=== PATIENT | male | born 1955 | race Caucasian/White ===

== ENCOUNTER 2025-05-30 15:58 | Outpatient (OUT) | payer MEDICARE, SELFPAY ==
--- NOTE | 2025-05-30 16:24 | XR_ITS ---
[facility] [place] [id number] Patient Name: BRONWYN VOGT MRN: [id number] date: 1955 Sex: M Assigned Patient Location: RAD Current Patient Location: [facility] Accession/Order Number: [id number] Exam Date: 05/30/2025 21:06 Report Date: 05/30/2025 21:07 At the request of: SULAIMAN LOPEZ DPJacquie Procedure: XR foot LT min 3V LEFT FOOT - 3 views CLINICAL HISTORY: Pain COMPARISON: None FINDINGS: No focal soft tissue abnormality. No acute bony process is seen. Plantar spurring. Mild scattered degenerative changes. No bony erosions. XR/XR foot LT min 3V IMPRESSION: MILD DEGENERATIVE CHANGES OF THE LEFT FOOT WITH PLANTAR SPURRING. NO ACUTE BONY PROCESS. Impression dictated by: Ovidio Diane Jr., DJaseOJase 05/30/2025 9:07 PM Dictation Location: [place] [address] Electronically authenticated by: [id number] Y Date: 05/30/2025 21:07
== END 2025-05-30 15:59 | disposition home or self-care (01) ==
PROVIDERS: PCP Family Medicine; Visit Provider Podiatrist Foot & Ankle Surgery
DX: M79.672 Pain in left foot (principal); M77.32 Calcaneal spur, left foot
CPT/HCPCS: 73630